=== PATIENT | female | born 1975 | race Hispanic/Latino ===

== ENCOUNTER → 2019-03-18 | Outpatient (CLI) | payer OTHER ==
--- NOTE | 2019-03-28 15:33 | REPMRS ---
Patient History The patient states she has not had a clinical breast exam in over a year. Took hormonal contraceptives for 10 months. [facility] lifetime risk for breast cancer is 14.2%. Digital Mammo Screening Bilat: March 18, 2019 - Exam #: [id number] Bilateral CC and MLO view(s) were taken. Technologist: Kirsten Trejo Technologist FINDINGS: The breast tissue is heterogeneously dense. This may lower the sensitivity of mammography. There has been no change in the appearance of the mammogram from the prior studies. There is a moderate amount of residual fibroglandular tissue which is fairly symmetric. There is no interval development of dominant mass, areas of architectural distortion, or clustered microcalcification typical of malignancy. Assessment: BI-RADS/ACR category 1 mammogram. Negative Mammogram. Recommendation Routine screening mammogram in 1 year (for women over age 40). This mammogram was interpreted with the aid of an FDA-approved computer-aided dectection system. Electronically Signed By: Arnaldo Jiang MD 03/28/19 [id number]
== END ==
LOC: M RAD 12:07
DX: Z12.31 Encounter for screening mammogram for malignant neoplasm of breast (principal)